=== PATIENT | female | born 1980 | race Caucasian/White ===

== ENCOUNTER → 2018-07-30 | Outpatient (CLI) | payer BC ==
--- NOTE | 2018-07-30 15:31 | XR ---
EXAMINATION TYPE: XR shoulder complete LT DATE OF EXAM: 07/30/2018 COMPARISON: NONE HISTORY: Pain TECHNIQUE: Three views are submitted. FINDINGS: The osseous structures are intact. There is no acute fracture or dislocation. Arthropathy of the AC joint.. IMPRESSION: 1. AC joint arthropathy correlate with MRI as clinically warranted..
== END | disposition home or self-care (01) ==
LOC: RADXRMAIN 15:00
PROVIDERS: ATTEND Family Medicine
DX: M12.812 Other specific arthropathies, not elsewhere classified, left shoulder (principal)

== ENCOUNTER → 2018-08-20 | Outpatient (CLI) | payer BC ==
--- NOTE | 2018-09-04 11:21 | MM ---
Reason for exam: screening (asymptomatic). Last mammogram was performed 4 years ago. History: Patient history of other cancer. Right breast excisional biopsy x2 benign at [facility] or [place] or [facility] in [place]. MG 3D Screening Mammo W/Cad Bilateral CC and MLO view(s) were taken. No prior studies available for comparison. The breast tissue is heterogeneously dense. This may lower the sensitivity of mammography. There is a benign oil cyst in the right upper outer quadrant at posterior depth. No suspicious abnormality. ASSESSMENT: Benign, BI-RAD 2 RECOMMENDATION: Routine screening mammogram of both breasts in 1 year.
== END | disposition home or self-care (01) ==
LOC: RADMAMWWP 15:22
PROVIDERS: ATTEND Family Medicine
DX: Z12.31 Encounter for screening mammogram for malignant neoplasm of breast (principal)
CPT/HCPCS: 77063; 77067

== ENCOUNTER → 2019-01-04 | Outpatient (CLI) | payer BC ==
--- NOTE | 2019-01-04 11:25 | US ---
EXAMINATION TYPE: US abdomen complete DATE OF EXAM: 01/04/2019 COMPARISON: NONE CLINICAL HISTORY: Abd pain R10.84. Intermittent right flank pain x couple weeks, history of cholecyst ectomy EXAM MEASUREMENTS: Liver Length: 15.3 cm Gallbladder Wall: surgically absent CBD: 0.4 cm Spleen: 11.3 cm Right Kidney: 10.2 x 4.4 x 4.7 cm Left Kidney: 11.0 x 5.7 x 4.8 cm Pancreas: visualized portions wnl, tail obscured by overlying midline bowel gas Liver: wnl Gallbladder: surgically absent Evidence for sonographic Rubio's sign: no CBD: wnl Spleen: wnl Right Kidney: Punctate renal calculi versus prominent renal sinus fat. No hydronephrosis. Left Kidney: Punctate renal calculi versus prominent renal sinus fat. No hydronephrosis. Upper IVC: wnl Abd Aorta: wnl The liver is homogenous. The intrahepatic portion of the IVC and proximal abdominal aorta are within normal limits. There is no evidence of cholelithiasis. Common bile duct is unremarkable. The visu alized portions of the pancreas are homogenous. The spleen is unremarkable. Kidneys are symmetric a nd free of hydronephrosis. No renal lesions are seen. IMPRESSION: Questionable bilateral punctate nonobstructing renal calculi versus prominent renal sinus fat. Surgical absence of the gallbladder, otherwise unremarkable abdominal ultrasound.
== END | disposition home or self-care (01) ==
LOC: RADUSWWP 07:52
PROVIDERS: ATTEND Family Medicine
DX: R10.84 Generalized abdominal pain (principal); Z90.49 Acquired absence of other specified parts of digestive tract
CPT/HCPCS: 76700

== ENCOUNTER 2019-02-03 16:22 | Emergency (ER) | payer BC ==
[2019-02-03 16:31] VITALS: BP 138/90; PULSE 86; RESP 18; TEMP 98.4
[2019-02-03 18:48] LABS: Appearance,Urine Cloudy (Clear); Bilirubin,Urine Negative (Negative); Blood,Urine Moderate (Negative); Color,Urine Dark Brown; Glucose,Urine (UA) Negative (Negative); Ketones,Urine Negative (Negative); Leukocyte Esterase,Urine Negative (Negative); Mucus,Urine Few /hpf; Nitrite,Urine Positive (Negative); Protein,Urine Trace (Negative); RBC,Urine >182 /hpf (0-5); Specific Gravity,Urine 1.021 (1.001-1.035); Squamous Epithelial Cell,Urine 6 /hpf (0-4)
--- NOTE | 2019-02-03 18:55 | ED ---
Female Urogenital HPI - General Chief complaint: Urogenital Stated complaint: poss bladder infection Time Seen by Provider: 02/03/19 17:39 Source: patient Mode of arrival: ambulatory Limitations: no limitations - History of Present Illness Initial comments: Patient is a 38-year-old female presenting to the emergency Department with complaints of burning pain in her bladder times one day. Patient states 2 days ago she noticed blood in her urine and went to local urgent care. Urgent care started her on Macrobid for possible UTI. Patient states today she noticed a burning/ sharp pain in her lower abdomen/suprapubic area. Patient states the pain is sharp at times and very uncomfortable. Admits to urinary urgency and frequency. Patient denies having fever, chills, nausea, vomiting. No other complaints at this time. - Related Data Previous Rx's Medication Instructions Recorded Cephalexin [Keflex] 500 mg PO BID 7 Days #14 cap 02/03/19 Phenazopyridine HCl [Pyridium] 200 mg PO TID 3 Days #9 tablet 02/03/19 Allergies Allergy/AdvReac Type Severity Reaction Status Date / Time Sulfa (Sulfonamide Allergy Unknown Verified 02/03/19 16:31 Antibiotics) Review of Systems ROS Statement: Those systems with pertinent positive or pertinent negative responses have been documented in the HPI. ROS Other: All systems not noted in ROS Statement are negative. Past Medical History Past Medical History: No Reported History History of Any Multi-Drug Resistant Organisms: None Reported Past Surgical History: No Surgical Hx Reported Past Psychological History: No Psychological Hx Reported Smoking Status: Never smoker Past Alcohol Use History: None Reported Past Drug Use History: None Reported General Exam - General Exam Comments Initial Comments: GENERAL: Well-appearing, well-nourished and in no acute distress. HEAD: Atraumatic, normocephalic. EYES: Pupils equal round and reactive to light, extraocular movements intact, sclera anicteric, conjunctiva are normal. ENT: TMs normal, nares patent, oropharynx clear without exudates. Moist mucous membranes. NECK: Normal range of motion, supple without lymphadenopathy or JVD. LUNGS: Breath sounds clear to auscultation bilaterally and equal. No wheezes rales or rhonchi. HEART: Regular rate and rhythm without murmurs, rubs or gallops. ABDOMEN: TTP over suprapubic region. Soft, normoactive bowel sounds. No guarding, no rebound. No masses appreciated. : Deferred EXTREMITIES: Normal range of motion, no pitting or edema. No clubbing or cyanosis. NEUROLOGICAL: Cranial nerves II through XII grossly intact. Normal speech, normal gait. PSYCH: Normal mood, normal affect. SKIN: Warm, Dry, normal turgor, no rashes or lesions noted. Limitations: no limitations Course Vital Signs 02/03/19 16:28 Temperature 98.4 F Pulse Rate 86 Respiratory 18 Rate Blood Pressure 138/90 O2 Sat by Pulse 96 Oximetry Medical Decision Making - Medical Decision Making Patient is a 38-year-old female complaining of burning sharp pain in the suprapubic region x 1 day. Patient had gross hematuria 2 days ago and was treated at urgent care for possible UTI with Macrobid. Patient states pain started today and she is concerned something else is going on. UA reveals moderate blood and positive nitrate. HCG is negative. Patient has no flank tenderness, afebrile. Low concern for kidney stones. Patient will be started on Keflex and Pyridium. Case discussed with Dr. Rubio. - Lab Data Lab Results 02/03/19 02/03/19 Range/Units 18:37 18:37 Urine Color Dark Brown Urine Appearance Cloudy H (Clear) Urine pH 6.0 (5.0-8.0) Ur Specific Fountain 1.021 (1.001-1.035) Urine Protein Trace H (Negative) Urine Glucose (UA) Negative (Negative) Urine Ketones Negative (Negative) Urine Blood Moderate H (Negative) Urine Nitrite Positive H (Negative) Urine Bilirubin Negative (Negative) Urine Urobilinogen 2.0 (<2.0) mg/dL Ur Leukocyte Esterase Negative (Negative) Urine RBC >182 H (0-5) /hpf Urine WBC 2 (0-5) /hpf Ur Squamous Epith Cells 6 H (0-4) /hpf Urine Mucus Few H (None) /hpf Urine HCG, Qual Not Detected (Not Detectd) Disposition Clinical Impression: Urinary tract infection Disposition: HOME SELF-CARE Condition: Stable Instructions (If sedation given, give patient instructions): Urinary Tract Infection in Women (ED) Additional Instructions: Please return to the Emergency Department if symptoms worsen or any other concerns. Follow-up with PCP and 3-4 days of symptoms continue. Prescriptions: Cephalexin [Keflex] 500 mg PO BID 7 Days #14 cap Phenazopyridine HCl [Pyridium] 200 mg PO TID 3 Days #9 tablet Is patient prescribed a controlled substance at d/c from ED?: No Referrals: Rodger Hernandez MD [Primary Care Provider] - 1-2 days
== END 2019-02-03 19:28 | disposition home or self-care (01) ==
LOC: EC 16:22
DX: N39.0 Urinary tract infection, site not specified (principal); Z88.2 Allergy status to sulfonamides
CPT/HCPCS: 81001; 81025; 99283

== ENCOUNTER → 2019-04-18 | Outpatient (CLI) | payer BC ==
--- NOTE | 2019-04-18 16:48 | CT ---
EXAMINATION TYPE: CT abdomen pelvis wo con DATE OF EXAM: 04/18/2019 COMPARISON: None INDICATION: Generalized abdominal/pelvic pain and bloating. Gross hematuria DLP: 621.2 mGycm, Automated exposure control for dose reduction was used. CONTRAST: 0 mL of Isovue 300. Study performed without Oral Contrast TECHNIQUE: Axial images were obtained from above the diaphragm to the pubic rami in the axial plane a t 5 mm thick sections. Reconstructed images are reviewed on the computer in the coronal plane. FINDINGS: Limited CT sections are obtained the lung bases. The lung bases are clear. CT ABDOMEN: Liver: Normal Spleen: Normal Pancreas: Normal Adrenal glands: The adrenal glands are normal. Gallbladder: Normal Kidneys: No masses are evident. No hydronephrosis is present. No cysts are present. No renal stone s are evident. Aorta: Normal Inferior vena cava: Normal. CT PELVIS: Loops of bowel within the abdomen and pelvis are normal. Study is without oral contrast limiting bowel evaluation. Appendix: Normal as visualized. Urinary bladder: Normal. Genitourinary structures: Uterus is normal. Adnexal regions are normal. Osseous structures: No suspicious lytic or sclerotic lesions. IMPRESSIONS: 1. No acute changes CT abdomen pelvis.
== END | disposition home or self-care (01) ==
LOC: RADCTMAIN 16:01
PROVIDERS: ATTEND Urology
DX: R31.0 Gross hematuria (principal); Z88.1 Allergy status to other antibiotic agents; Z88.6 Allergy status to analgesic agent
CPT/HCPCS: 74176

== ENCOUNTER → 2019-07-08 | Outpatient (CLI) | payer BC ==
[2019-07-08 12:24] LABS: Basophils % (A) 1 %; Eosinophils # (A) 0.1 k/uL (0-0.7); Eosinophils % (A) 2 %; HCT 36.2 % (34.0-46.0); HGB 11.3 gm/dL (11.4-16.0); Hypochromasia Slight; Lymphocytes # (A) 1.7 k/uL (1.0-4.8); Lymphocytes % (A) 33 %; MCH 25.8 pg (25.0-35.0); MCHC 31.2 g/dL (31.0-37.0); MCV 82.9 fL (80.0-100.0); Mean Platelet Volume 7.1; Monocytes # (A) 0.3 k/uL (0-1.0); Monocytes % (A) 5 %; Neutrophils % (A) 58 %; Platelet Count 320 k/uL (150-450); RBC 4.37 m/uL (3.80-5.40); RDW 13.3 % (11.5-15.5); WBC 5.2 k/uL (3.8-10.6)
== END | disposition home or self-care (01) ==
LOC: LABPAT 11:50
PROVIDERS: ATTEND Obstetrics & Gynecology
DX: Z01.812 Encounter for preprocedural laboratory examination (principal); N93.8 Other specified abnormal uterine and vaginal bleeding
CPT/HCPCS: 36415; 85025

== ENCOUNTER 2019-07-11 10:40 | Day surgery (SDC) | payer BC ==
[2019-07-07 16:54] VITALS: BMI 33.5
[~2019-07-11 10:40] MED LIST: DEXAMETHASONE SOD PHOSPHATE 10 MG/ML 1 ML VIAL IV ONE; HYDROmorphone 0.5 MG/0.5 ML SYRINGE IVP PRN; LACTATED RINGERS 1,000 ML IV SCH; LIDOCAINE 1% 20 ML VIAL (10MG/ML) FOR IV START INTRADERMA PRN; ONDANSETRON 4 MG/2 ML VIAL IVP ONE; Pre Op ABX Message 1 EACH MISC MISCELLANE ONE; fentaNYL (PF) 50 MCG/ML 2 ML AMP IV PRN
[2019-07-11] MEDS ORDERED: SUCCINYLCHOLINE CHLORIDE 100 MG/5 ML SYR IV ONE (12:02)
[2019-07-11] MEDS ORDERED: MIDAZOLAM 2 MG/2 ML VIAL ONE (12:02)
[2019-07-11] MEDS ORDERED: LIDOCAINE 1% INJ 10MG/ML (20 ML MDV) ONE (12:02)
[2019-07-11] MEDS ORDERED: KETOROLAC 30 MG/ML 1 ML VIAL ONE (12:02)
[2019-07-11] MEDS ORDERED: PROPOFOL 10 MG/ML 20 ML VIAL IV ONE (12:02)
[2019-07-11] MEDS ORDERED: fentaNYL (PF) 50 MCG/ML 2 ML AMP ONE (12:02)
[2019-07-11] MEDS ORDERED: diphenhydrAMINE 50 MG/ML 1 ML VIAL ONE (12:02)
[2019-07-11] MEDS ORDERED: HYDROmorphone (PF) 1 MG/ML ONE (12:02)
[2019-07-11] MEDS ORDERED: diphenhydrAMINE 50 MG/ML 1 ML VIAL IVP PRN (12:05)
[2019-07-11] MEDS ORDERED: ONDANSETRON 4 MG/2 ML VIAL IVP PRN (12:05)
[2019-07-11] MEDS ORDERED: KETOROLAC 30 MG/ML 1 ML VIAL IVP PRN (12:05)
[2019-07-11] MEDS ORDERED: IBUPROFEN 600 MG TAB PO PRN (12:05)
[2019-07-11] MEDS ORDERED: SIMETHICONE 80 MG CHEWABLE PO PRN (12:05)
[2019-07-11] MEDS ORDERED: METOCLOPRAMIDE 5 MG/ML 2 ML VIAL IVP PRN (12:05)
[2019-07-11] MEDS ORDERED: Acetaminophen-Codeine 300-30mg TAB PO PRN ×2 (12:05)
[2019-07-11] MEDS ORDERED: LACTATED RINGERS 1,000 ML IV SCH (12:15)
[2019-07-11] MEDS ORDERED: SORBITOL 3% IRRIGATION 3,000 ML IRRIGATION ONE (12:20)
--- NOTE | 2019-07-11 12:37 | P.OP ---
Date of Procedure: 07/11/19 Preoperative Diagnosis: #1. Dysfunctional uterine bleeding Postoperative Diagnosis: Same Procedure(s) Performed: #1. Diagnostic hysteroscopy #2. Dilation and curettage Anesthesia: RUDDY Surgeon: Mike Marc Estimated Blood Loss (ml): 5 IV fluids (ml): 400 Urine output (ml): 50 Pathology: other (Endometrial curettings, presumptive multiple endometrial polyps) Condition: stable Disposition: PACU Operative Findings: Preoperative pelvic examination demonstrated a roughly 4-5 week retroverted mobile normal shaped uterus with normal adnexa bilaterally. Intraoperatively, the uterus sounded to approximately 8 cm. The hysteroscope demonstrated significant apparent polypoid tissue throughout the entire endometrial cavity, particularly at the fundus. The tubal ostia could not be seen secondary to the degree of polypoid tissue. There did not appear to be any significant distortion of the cavity to find a diagnosis consistent with the submucous fibroid. A significant amount of polypoid tissue was removed onto a Telfa in the vagina. A polyp forceps was placed multiple times to the fundus of the uterus and failed to produce any further tissue. The typical gritty texture was encountered after the initial removal of the polypoid tissue. The patient is a borderline candidate for vaginal hysterectomy should it become necessary. Description of Procedure: The patient was prepped and draped in usual fashion after general endotracheal anesthesia was administered by the anesthesiologist. A weighted speculum was placed in the bladder draining approximately 50 mL of clear tevin urine. The anterior lip of the cervix was grasped with a single-tooth tenaculum and uterus sounded to 8 cm as noted above. Serial dilation was carried out to admit the diagnostic hysteroscope which was placed to the fundus and the cavity dilated with sorbitol. On the findings are as noted above with a significant amount of what appeared to be polypoid tissue throughout the fundus of the uterus and to the level of the internal cervical os. After adequate hysteroscopy had been carried out, the scope was set aside and a large sharp curette introduced into the cavity of the uterus. Thorough and circumferential curettage was carried out from the fundus to the cervix with the tissue being removed onto a Telfa placed in the vagina. There was a significant amount of tissue produced a but the typical gritty texture of the endometrium was encountered throughout consistent with a probable benign diagnosis. After several passes with the sharp curet produced no further tissue, polyp forceps was introduced and no further tissue removed. All instrumentation was then removed. Estimated blood loss for the case was approximately 5 mL or less. There were no complications. All sponge, instrument, and needle counts were correct. The patient tolerated the procedure well and proceeded to the recovery room in stable condition.
[2019-07-11 12:51] VITALS: TEMP 98.2
[2019-07-11 13:16] VITALS: RESP 18
[2019-07-11 13:37] VITALS: BP 135/82; PULSE 87
== END 2019-07-11 13:56 | disposition home or self-care (01) ==
LOC: OR 10:40
PROVIDERS: ATTEND Obstetrics & Gynecology
DX: N93.8 Other specified abnormal uterine and vaginal bleeding (principal); D64.9 Anemia, unspecified; J45.909 Unspecified asthma, uncomplicated; Z90.49 Acquired absence of other specified parts of digestive tract; Z79.899 Other long term (current) drug therapy; Z88.2 Allergy status to sulfonamides; Z80.49 Family history of malignant neoplasm of other genital organs; Z87.891 Personal history of nicotine dependence; Z85.828 Personal history of other malignant neoplasm of skin; M06.9 Rheumatoid arthritis, unspecified; K21.9 Gastro-esophageal reflux disease without esophagitis; Z79.1 Long term (current) use of non-steroidal anti-inflammatories (NSAID)
CPT/HCPCS: 81025; 88305; 58563; J2250; J1200; J1100; J2405; J2001; J3010; J1885; J1170; J0330; J2704

== ENCOUNTER → 2019-07-20 | Outpatient (CLI) | payer BC ==
--- NOTE | 2019-07-20 14:09 | US ---
EXAMINATION TYPE: US abdomen complete DATE OF EXAM: 07/20/2019 COMPARISON: CT April 18, 2019 CLINICAL HISTORY: R10.11 right upper quadrant pain. Intermittent RUQ pain x couple months, nausea, hi story of cholecystectomy EXAM MEASUREMENTS: Liver Length: 16.8 cm CBD: 0.3 cm Spleen: 10.9 cm Right Kidney: 9.7 x 4.8 x 4.8 cm Left Kidney: 10.7 x 6.0 x 4.3 cm Pancreas: visualized portion wnl, tail limited by overlying midline bowel gas Liver: Increased attenuation Gallbladder: surgically absent Evidence for sonographic Rubio's sign: no CBD: visualized portions wnl, limited by overlying bowel gas Spleen: wnl Right Kidney: wnl Left Kidney: wnl Upper IVC: wnl Abd Aorta: wnl The visualized liver is heterogeneous hyperechoic. No intrahepatic ductal dilatation. Evaluation for focal masses suboptimal due to the heterogeneity. Finding likely on basis of diffuse fatty infiltrat ion. The intrahepatic portion of the IVC and visualized abdominal aorta are within normal limits. Ga llbladder noted surgically absent. Common bile duct is unremarkable. The visualized portions of the pancreas are homogenous. The spleen is unremarkable. Kidneys are symmetric and free of hydronephro sis. No renal lesions are seen. IMPRESSION: No suspicious acute findings are identified.
== END | disposition home or self-care (01) ==
LOC: RADUSWWP 12:54
PROVIDERS: ATTEND Family Medicine
DX: R10.11 Right upper quadrant pain (principal); Z88.2 Allergy status to sulfonamides
CPT/HCPCS: 76700

== ENCOUNTER → 2019-09-29 | Outpatient (CLI) | payer BC ==
[2019-09-29 15:10] LABS: Basophils # (A) 0.1 k/uL (0-0.2); Basophils % (A) 1 %; Eosinophils # (A) 0.2 k/uL (0-0.7); Eosinophils % (A) 3 %; HCT 37.4 % (34.0-46.0); HGB 11.7 gm/dL (11.4-16.0); Hypochromasia Moderate; Lymphocytes % (A) 33 %; MCH 24.4 pg (25.0-35.0); MCHC 31.3 g/dL (31.0-37.0); MCV 78.1 fL (80.0-100.0); Mean Platelet Volume 7.7; Monocytes # (A) 0.3 k/uL (0-1.0); Monocytes % (A) 4 %; Neutrophils # (A) 3.4 k/uL (1.3-7.7); Neutrophils % (A) 56 %; Platelet Count 321 k/uL (150-450); RBC 4.79 m/uL (3.80-5.40); RDW 14.1 % (11.5-15.5); WBC 6.1 k/uL (3.8-10.6)
--- NOTE | 2019-09-29 15:33 | XR ---
Bilateral hands and bilateral wrists HISTORY: Chronic pain 3 views of each hand, 4 views of each wrist submitted. Total of 14 images. Bone mineralization, joint spaces and alignment are maintained. No evident erosion. IMPRESSION: Normal hands and wrists.
--- NOTE | 2019-09-29 15:50 | XR ---
EXAMINATION TYPE: XR knee complete bilateral DATE OF EXAM: 09/29/2019 COMPARISON: NONE HISTORY: Pain TECHNIQUE: 3 views of each knee are submitted. FINDINGS: Mild narrowing of the medial compartment of the knee joint bilaterally. No erosive changes. Small jonatan unt of fluid in the suprapatellar bursa bilaterally.. Osseous structures are intact. No acute fract ure seen. IMPRESSION: 1. Mild arthropathy. Small amount of fluid in the suprapatellar bursa bilaterally. Recommend follow-u p MRI..
--- NOTE | 2019-09-29 15:52 | XR ---
EXAMINATION TYPE: XR Hip Bilateral Complete DATE OF EXAM: 09/29/2019 COMPARISON: NONE HISTORY: Pain TECHNIQUE: 2 views submitted FINDINGS: There is no evidence of erosive change or acute fracture. Joint spaces are preserved. Mild hypertroph ic change of the acetabulum bilaterally. Vascular calcifications overlying the pubic rami. Visualized SI joints have a normal appearance. IMPRESSION: 1. No acute process. Mild hypertrophy of the acetabulum can occasionally be associated with femoral a cetabular impingement. No erosive changes.
[2019-09-29 16:08] LABS: Erythrocyte Sedimentation Rate 14 mm/hr (0-20)
[2019-09-29 19:07] LABS: C Reactive Protein 0.5 mg/dL (0.0-0.8)
[2019-09-29 20:58] LABS: Cyclic Citrull Pep IgG Unit 3.7 U/mL; Cyclic Citrullinated Pep IgG POSITIVE (NEGATIVE)
--- NOTE | 2019-09-30 16:48 | MM ---
Reason for exam: screening (asymptomatic). Last mammogram was performed 1 year and 1 month ago. History: Patient history of other cancer. Benign excisional biopsy of the right breast, 2014. Took hormonal contraceptives for 3 years. Physical Findings: A clinical breast exam by your physician is recommended on an annual basis and results should be correlated with mammographic findings. MG 3D Screening Mammo W/Cad Bilateral CC and MLO view(s) were taken. Prior study comparison: August 20, 2018, bilateral MG 3d screening mammo w/cad. There are scattered fibroglandular densities. Focal asymmetry left upper outer quadrant, stable. No significant changes when compared with prior studies. ASSESSMENT: Benign, BI-RAD 2 RECOMMENDATION: Routine screening mammogram of both breasts in 1 year.
== END | disposition home or self-care (01) ==
LOC: LABWHC1 14:24
PROVIDERS: ATTEND Internal Medicine Rheumatology
DX: Z12.31 Encounter for screening mammogram for malignant neoplasm of breast (principal); M12.862 Other specific arthropathies, not elsewhere classified, left knee; M12.861 Other specific arthropathies, not elsewhere classified, right knee; M89.38 Hypertrophy of bone, other site; M25.669 Stiffness of unspecified knee, not elsewhere classified; M05.79 Rheumatoid arthritis with rheumatoid factor of multiple sites without organ or systems involvement
CPT/HCPCS: 36415; 73521; 77063; 77067; 85025; 85652; 86038; 86140; 86200; 86431